=== PATIENT | female | born 1960 | race American Indian/Alaskan Native ===

== ENCOUNTER 2016-12-23 10:35 | Outpatient (CLI) | payer OTHER ==
--- NOTE | 2016-12-23 14:02 | Mammography Report ---
BILATERAL DIGITAL SCREENING MAMMOGRAM with CAD: 12/23/16 10:35:00 CLINICAL: Routine screening. COMPARISON:08/02/14 FINDINGS: There are scattered areas of fibroglandular density.Stable left upper outer low density circumscribed 1.5 cm mass and stable left upper outer punctate and amorphous calcifications. No new mass, architectural distortion or suspicious calcifications. IMPRESSION: No mammographic evidence of malignancy. BI-RADS CATEGORY: 2 -- Benign RECOMMENDATION: Routine mammographic screening in one year. COMMENT: Patient follow-up letters are generated by our [employer] application.
== END 2016-12-23 10:36 | disposition home or self-care (01) ==
LOC: MAMMO 10:35
PROVIDERS: ATTEND Family Medicine
DX: Z12.31 Encounter for screening mammogram for malignant neoplasm of breast (principal)
CPT/HCPCS: 77067; G0202

== ENCOUNTER 2017-06-04 18:05 | Emergency (ER) | payer OTHER ==
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
[2017-06-05] MEDS ORDERED: MOTRIN PO ONE (00:28)
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
[2017-06-05 03:31] VITALS: BP 134/72
== END 2017-06-05 03:14 | disposition home or self-care (01) ==
LOC: ED 18:05
DX: S22.32XA Fracture of one rib, left side, initial encounter for closed fracture (principal); R51 Headache; M79.1 Myalgia; M25.512 Pain in left shoulder; V49.49XA Driver injured in collision with other motor vehicles in traffic accident, initial encounter; Y93.89 Activity, other specified; Y92.89 Other specified places as the place of occurrence of the external cause; Y99.8 Other external cause status
CPT/HCPCS: 71045

== ENCOUNTER 2017-07-10 10:28 | Outpatient (CLI) | payer OTHER ==
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
== END 2017-07-10 10:29 | disposition home or self-care (01) ==
LOC: MRI 10:28
PROVIDERS: ATTEND Orthopaedic Surgery
DX: S83.271A Complex tear of lateral meniscus, current injury, right knee, initial encounter (principal); M17.11 Unilateral primary osteoarthritis, right knee; X58.XXXA Exposure to other specified factors, initial encounter; Y93.89 Activity, other specified; Y92.89 Other specified places as the place of occurrence of the external cause; Y99.8 Other external cause status
CPT/HCPCS: 73721

== ENCOUNTER 2017-07-23 08:36 | Day surgery (SDC) | payer OTHER ==
[~2017-07-23 08:36] MED LIST: LACTATED RINGERS 1,000 ML IV SCH; VERSED IV NR
[2017-07-23] MEDS ORDERED: DILAUDID IV PRN (10:29)
--- NOTE | 2017-07-23 10:29 | Anesthesia Day of Surgery ---
Anesthesia Day of Surgery - Day of Surgery Patient Examined: Yes Patient H&P Reviewed: Yes Patient is NPO: Yes
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
[2017-07-23] MEDS ORDERED: DIPRIVAN 10 MG/ML IV ONE (10:57)
[2017-07-23] MEDS ORDERED: XYLOCAINE MPF 2% ONE (10:59)
[2017-07-23] MEDS ORDERED: DEPO-MEDROL ONE (11:48)
[2017-07-23] MEDS ORDERED: MARCAINE 0.5% 30 ML INFILTRATI ONE (11:48)
[2017-07-23] MEDS ORDERED: NACL 0.9% IR ONE ×2 (11:55)
[2017-07-23] MEDS ORDERED: ANCEF/STERILE WATER 2 GM/20 ML IV NR (12:00)
[2017-07-23] MEDS ORDERED: DECADRON ONE (12:22)
[2017-07-23] MEDS ORDERED: ZOFRAN ONE ×2 (12:22→16:16)
[2017-07-23] MEDS ORDERED: DILAUDID ONE (12:22)
[2017-07-23] MEDS ORDERED: DEPO-MEDROL INTRA-ARTI ONE (13:06)
[2017-07-23] MEDS ORDERED: MARCAINE 0.5% INFILTRATI ONE (13:06)
--- NOTE | 2017-07-23 13:36 | Procedure Note ---
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 A timeout procedure was done to identify the patient and correct operative site. The leg was exsanguinated followed by inflation of the pneumatic tourniquet to 300 mmHg next bones were made about the infrapatellar region following introduction of the arthroscope and insufflation of the knee with normal saline solution examination revealed these findings the patient was noted to have grade 2-3 chondromalacia involving both the medial tibial plateau as well as the corresponding femoral articular surfaces the medial meniscus was probed and was found to be without tears and the arthroscope was then placed into the lateral compartment and the lateral meniscus again appeared to be without any obvious pathology this structure was also probed C intercondylar notch and patellofemoral joints were inspected following the inspection the arthroscopic shaver was brought in the articular cartilage was debrided down to healthier appearing articular cartilage on both the tibial and femoral sides following this the knee was copiously irrigated and closed this is followed by injecting 80 mg of Depo-Medrol and Marcaine this was followed by application of postoperative dressings the patient tolerated the procedure there no complications Anesthesia: MAC Surgeon: DWAYNE MACDONALD (Anastasia Champion, 1st administrative assistant receptionist) Estimated blood loss: minimal Pathology: none Condition: stable Disposition: PACU
--- NOTE | 2017-07-23 13:49 | Post Anesthesia Evaluation ---
- Post Anesthesia Evaluation Patient Participated: Yes Airway Patent: Yes Stable Respiratory Function: Yes Nausea/Vomiting: No Temp > 96.8F: Yes Pain Manageable: Yes Adequeate Hydration: Yes Anesthesia Complications: No
[2017-07-23] MEDS ORDERED: ZOFRAN IV ONE (16:21)
[2017-07-23 16:49] VITALS: BP 158/84
== END 2017-07-23 16:50 | disposition home or self-care (01) ==
LOC: OR 08:36 → EDBD 08:36 → OR 16:50
PROVIDERS: ATTEND Orthopaedic Surgery
DX: M23.91 Unspecified internal derangement of right knee (principal); M94.261 Chondromalacia, right knee; E66.9 Obesity, unspecified; Z87.891 Personal history of nicotine dependence; Z68.31 Body mass index [BMI] 31.0-31.9, adult
CPT/HCPCS: 29879; 97161; A4217; J0690; J1030; J1100; J1170; J2405; J2704; J7120

== ENCOUNTER 2019-05-11 10:31 | Outpatient (CLI) | payer OTHER ==
--- NOTE | 2019-05-11 11:41 | XRay Report ---
CHEST 2 VIEWS INDICATION / CLINICAL INFORMATION: PRE SURGERY CHECK. COMPARISON: Chest x-ray on 06/05/2017. FINDINGS: SUPPORT DEVICES: None. HEART / MEDIASTINUM: No significant abnormality. LUNGS / PLEURA: No significant pulmonary or pleural abnormality. No pneumothorax. ADDITIONAL FINDINGS: No significant additional findings. IMPRESSION: 1. No acute findings. Signer Name: Milan Brown MD Signed: 05/11/2019 11:36 AM Workstation Name: [id number]
--- NOTE | 2019-05-11 12:20 | Mammography Report ---
DIGITAL SCREENING MAMMOGRAM WITH CAD, 05/11/2019 INDICATION: Routine screening mammography. She is planning to have a lift procedure. TECHNIQUE: Digital bilateral 2D mammography was obtained in the craniocaudal and mediolateral obliq ue projections. This examination was interpreted with the benefit of Computer-Aided Detection analysi s. COMPARISON: 12/23/16 and 08/02/2014 FINDINGS: Breast Density: There are scattered areas of fibroglandular density. A partially circumscribed left outer mass is larger compared to previous exams and requires additiona l imaging. No architectural distortion or suspicious calcifications. There is no evidence of dominant mass, suspicious calcifications or architectural distortion in the right breast. IMPRESSION: Left mass requiring additional imaging. Recommend recall for left lateral and spot compre ssion MLO and CC views and targeted left breast ultrasound. Follow up recommendation: Special View: Spot Category 0: Incomplete. Needs additional imaging evaluation and/or prior mammograms for comparison. A "normal" or negative report should not discourage follow up or biopsy of a clinically significant f inding. A written summary of these findings will be mailed to the patient. The patient will be entered into a mammography reporting system which will generate a reminder letter for the patient's next appointmen t at the appropriate interval. The [employer] recommends yearly mammograms starting at age 40 and continuing as l ashly as a woman is in good health. Breast MRI is recommended for women with an approximate 20-25% or greater lifetime risk of breast cancer, including women with a strong family history of breast or [place] cancer or who have been treated for Hodgkin's disease. Signer Name: Darren Figueroa MD Signed: 05/11/2019 12:16 PM Workstation Name: [id number]
== END 2019-05-11 10:32 | disposition home or self-care (01) ==
LOC: SPVWC 10:31 → EDBD 10:45
PROVIDERS: ATTEND Internal Medicine
DX: Z01.810 Encounter for preprocedural cardiovascular examination (principal); Z12.31 Encounter for screening mammogram for malignant neoplasm of breast; N63.23 Unspecified lump in the left breast, lower outer quadrant
CPT/HCPCS: 71046; 77067

== ENCOUNTER 2019-05-16 10:12 | Outpatient (CLI) | payer OTHER ==
--- NOTE | 2019-05-16 11:14 | Ultrasound Report ---
LEFT DIGITAL DIAGNOSTIC MAMMOGRAM WITH CAD 05/16/2019 LEFT LIMITED BREAST ULTRASOUND INDICATION: Recalled to evaluate mammographic asymmetries. F/U abnormal mammogram TECHNIQUE: Digital left mammographic imaging was performed. Spot compression views were obtained. Li mited ultrasound was performed. This examination was interpreted with the benefit of Computer-Aided D etection (CAD) analysis. COMPARISON: 05/11/2019 FINDINGS: Breast Density: There are scattered areas of fibroglandular density. MAMMOGRAPHIC FINDINGS: ML, spot compression MLO and CC views were performed. An oval partially circum scribed density persists on all views in the outer breast. The upper asymmetry demonstrates satisfact ory effacement with spot compression. ULTRASOUND FINDINGS: Targeted ultrasound evaluation was performed of the area of interest. Ultrasou nd of the outer breast was performed and demonstrated an oval anechoic cyst at 3:00 3 cm from the nip ple measuring 1.6 x 1.5 x 0.5 cm. No solid mass or suspicious shadowing. IMPRESSION: Benign 1.6 cm left breast cyst at 3:00 3 cm from the nipple. Recommend routine mammograph ic screening. Follow up recommendation: Routine yearly BI-RADS Category 2: Benign. A "normal" or negative report should not discourage follow up or biopsy of a clinically significant f inding. A written summary of these findings will be mailed to the patient. The patient will be entered into a mammography reporting system which will generate a reminder letter for the patient's next appointmen t at the appropriate interval. According to the [employer], yearly mammograms are recommended starting at age 40 and continuing as long as a woman is in good health. Breast MRI is recommended for women with an ashley roximately 20-25% or greater lifetime risk of breast cancer, including women with a strong family his tory of breast or ovarian cancer and women who have been treated for Hodgkin's disease. Signer Name: Darren Figueroa MD Signed: 05/16/2019 11:10 AM Workstation Name: [id number]
== END 2019-05-16 10:13 | disposition home or self-care (01) ==
LOC: MAMMO 10:12
PROVIDERS: ATTEND Internal Medicine
DX: R92.8 Other abnormal and inconclusive findings on diagnostic imaging of breast (principal)

== ENCOUNTER 2020-04-23 10:03 | Outpatient (CLI) | payer OTHER ==
--- NOTE | 2020-04-23 11:00 | XRay Report ---
CHEST 2 VIEWS INDICATION: ENCOUNTER FOR OTHER PREPROCEDURAL EXAM Z01.818. COMPARISON: 05/11/2019 FINDINGS: Support devices: None. Heart: Within normal limits. Lungs/pleura: No acute air space or interstitial disease. No pneumothorax. Additional findings: None. IMPRESSION: No acute findings. Signer Name: Guido Chaney Jr, MD Signed: 04/23/2020 10:56 AM Workstation Name: [id number]
== END 2020-04-23 10:04 | disposition home or self-care (01) ==
LOC: SPVIMAG 10:03
PROVIDERS: ATTEND Internal Medicine
DX: Z01.818 Encounter for other preprocedural examination (principal)
CPT/HCPCS: 71046